=== PATIENT | male | born 1955 | race Caucasian/White ===

== ENCOUNTER 2024-12-24 11:07 | Emergency (ER) | payer OTHER ==
[2024-12-24 11:36] VITALS: PULSE 58; TEMP 97.8; BMI 30.7
[2024-12-24] MEDS ORDERED: DIPHTH,PERTUSS(ACELL),TET 0.5 ML DISP.SYRIN IM ONE (15:00)
[2024-12-24] MEDS: DIPHTH,PERTUSS(ACELL),TET 0.5 ML DISP.SYRIN IM ONE (15:06)
[2024-12-24 15:57] VITALS: BP 142/64; RESP 18
== END 2024-12-24 15:50 | disposition home or self-care (01) ==
LOC: JER 11:07
PROC: 3E0234Z Introduction of Serum, Toxoid and Vaccine into Muscle, Percutaneous Approach (ICD-10-PCS; principal; 2024-12-24)
DX: S42.032A Displaced fracture of lateral end of left clavicle, initial encounter for closed fracture (principal); S00.83XA Contusion of other part of head, initial encounter; S80.211A Abrasion, right knee, initial encounter; Z23 Encounter for immunization; W10.9XXA Fall (on) (from) unspecified stairs and steps, initial encounter; W20.8XXA Other cause of strike by thrown, projected or falling object, initial encounter; Y92.009 Unspecified place in unspecified non-institutional (private) residence as the place of occurrence of the external cause
CPT/HCPCS: 70450-TC; 72125-TC; 73030-TC-LT-FY; 73130-TC-RT-FY; 73562-TC-LT-FY; 90471; 90715; 99285-25